=== PATIENT | female | born 1990 | race Caucasian/White ===

== ENCOUNTER → 2020-11-06 | Outpatient (CLI) | payer SELFPAY ==
[~2020-11-06] MED LIST: FERR-36 PO; HYDR-2759 PO
== END ==
LOC: LAB 13:58
PROVIDERS: ATTEND Obstetrics & Gynecology
DX: Z01.812 Encounter for preprocedural laboratory examination (principal); Z20.822 Contact with and (suspected) exposure to COVID-19
CPT/HCPCS: U0003; U0005

== ENCOUNTER 2020-11-08 11:22 | Day surgery (SDC) | payer BC ==
[~2020-11-08] VITALS: Ht 160 cm; Wt 74.0 kg
[~2020-11-08 11:22] MED LIST changes: -HYDR-2759 PO; +HYDROmorphone 2 MG/ML VIAL IVP PRN; +IV RINGERS,LACTATED 1000ML 1,000 ML IV SCH; +MORPHINE SULFATE 2 MG/ML INJ. IVP PRN; +PROCHLORPERAZINE 10 MG/2 ML VIAL. IVP PRN; +ceFAZolin SODIUM IV Push 1 GM VIAL. IVP PRN; +fentaNYL PF VIAL 100 MCG/2 ML VIAL IVP PRN
[2020-11-08] MEDS ORDERED: MIDAZOLAM HCL/PF 2 MG/2 ML VIAL. ONE (11:53)
[2020-11-08] MEDS ORDERED: fentaNYL PF VIAL 100 MCG/2 ML VIAL ONE (11:53)
[2020-11-08] MEDS ORDERED: ONDANSETRON PF 4 MG/2 ML VIAL. ONE (11:55)
[2020-11-08] MEDS ORDERED: DEXAMETHASONE SOD PHOS 4 MG/ML VIAL ONE (11:55)
[2020-11-08] MEDS ORDERED: PROPOFOL 10 MG/ML (20ML) VIAL. IV ONE (11:55)
[2020-11-08] MEDS ORDERED: LIDOCAINE 2% PF 5 ML VIAL. ONE (11:55)
[2020-11-08] MEDS ORDERED: SEVOFLURANE 61 TO 120 MINUTES. IH ONE (11:56)
--- NOTE | 2020-11-08 13:39 | PDOC ---
BRIEF OPERATIVE NOTE Date: Nov 08, 2020 Pre-Op Diagnosis 1. Retained IUD Post-Op Diagnosis Same + endometrial polyps Procedure Performed Op [facility] [place] Surgeon Dr. Tapia Anesthesia Type: General Blood Loss 5 ml Specimens Obtained Arm of Paragarud IUD, Endometrial polyps Findings nml size uterus, arm of Paragard IUD, endometrial polyps; nml fallopian tube ostia nicole. Complications none Operative Note see dictation EMORY TAPIA Jr, MD Nov 08, 2020 13:39
[2020-11-08] MEDS ORDERED: HYDR-2759 PO (13:41)
--- NOTE | 2020-11-08 13:47 | DISCH ---
DISCHARGE INSTRUCTIONS Condition on Discharge Condition on Discharge: Stable Activity After Discharge Activity Instructions for Disc: Activity as tolerated Lifting Instructions after Dis: No heavy lifting Driving Instructions after Dis: Do not drive today Diet after Discharge Diet after Discharge: Regular Contacting the DRGhada after DC Call your doctor for: Concerns you may have Follow-Up Follow up with: Dr. Tapia in 1 wk EMORY TAPIA Jr, MD Nov 08, 2020 13:47
[2020-11-08] MEDS ORDERED: oxyCODONE/APAP 5/325 1 TAB TABLET ONE (13:55)
[2020-11-08] MEDS ORDERED: oxyCODONE/APAP 5/325 1 TAB TABLET PO ONE (14:00)
--- NOTE | 2020-11-08 14:00 | OP ---
DATE OF SURGERY: 11/08/2020 PREOPERATIVE DIAGNOSIS: Retained intrauterine device. POSTOPERATIVE DIAGNOSIS: Retained intrauterine device plus endometrial polyps. PROCEDURE: Operative hysteroscopy. SURGEON: William Tapia MD EMPLOYMENT REPRESENTATIVE: [employer]. ESTIMATED BLOOD LOSS: 5 mL COMPLICATIONS: None. FINDINGS: Normal size uterus arm of ParaGard IUD, endometrial polyps. Normal fallopian tube ostia bilaterally. COMPLICATIONS: None. SUMMARY: A 30-year-old who had presented for operative hysteroscopy due to retained ParaGard IUD removal of the ParaGard IUD in the office. One arm of the IUD was not retrieved. DESCRIPTION OF PROCEDURE: The patient was counseled on the risks, benefits, and expectation of operative hysteroscopy for IUD retrieval and voiced clear understanding to proceed. The patient was taken to surgery suite and placed in dorsal lithotomy position and was prepped with Betadine solution and draped in a sterile fashion. After adequate anesthesia, weighted speculum and curved Lisa placed vaginally. Anterior lip of the cervix grasped with single tooth tenaculum. Cervix was dilated with Hegar dilators up to size 7. The TruClear hysteroscope was placed. The intrauterine cavity was visualized and found to have multiple endometrial polyps. The IUD device was visualized and retrieved with the biopsy, cystoscopy, biopsy device. We then proceeded with the TruClear device in which we resected the multiple endometrial polyps. The endometrial cavity then appeared homogeneous. Both fallopian tube ostia appeared normal and patent. The hysteroscope was removed. Weighted speculum and single tooth tenaculum were removed. The patient tolerated the procedure well and was taken to recovery room in stable condition. Sponge and needle count correct x3. SKYE/SOSA DR: SKYE/maximilian TID: [id number]
[2020-11-08 14:05] VITALS: BP 115/62
--- NOTE | 2020-11-12 17:07 | PATHOLOGY ---
[facility] Accession Number: [id number] . 01 Material submitted: . uterus - RETAINED IUD AND POLYPS . 01 Clinical history: . RETAINED IUD OPERATIVE HYSTEROSCOPY WITH TRUCLEAR MISPLACED IUD . 02 Diagnosis: Uterine curettings: - Focally polypoid segments of secretory endometrium and endometrial polyps. - Intrauterine device (Gross only). (JPM:[facility]; 11/12/2020) [facility] 11/12/2020 1641 Local . 02 Comment: There is no atypia or evidence of malignancy. (JPM:[facility]; 11/12/2020) . 02 Electronically signed: . Epifanio Davila MD, Pathologist NPI- [id number] . 01 Gross description: . The specimen is received in formalin, labeled "Medinagil, Alexandrea and retained IUD and polyps". It consists of multiple johnson irregular soft tissue fragments measuring 4.0 x 2.0 x 2.0 cm in aggregate. Also identified within the specimen container is a copper-colored, white, firm shashi measuring 1.7 cm long by 0.2 cm in diameter. A gross photograph is taken. The soft tissue is placed in biopsy bags and entirely submitted in A1 through A4. (MR[facility]; 11/09/2020) MFE/MFE 11/09/2020 1758 Local . 02 Pathologist provided ICD-10: N84.0 . 02 CPT . 204111 Specimen Comment: A courtesy copy of this report has been sent to [phone] Specimen Comment: Report sent to Performed at: [address], [place], [place] [id number] MD Hernandez Peralta MD Phone: [phone] Performed at: 02 [facility] [address] [place], [place] [id number] MD Epifanio Davila MD Phone: [phone]
== END 2020-11-08 14:28 | disposition home or self-care (01) ==
LOC: SURG 11:22 → EDUNIT# 14:30
PROVIDERS: ATTEND Obstetrics & Gynecology
DX: N84.0 Polyp of corpus uteri (principal); E66.9 Obesity, unspecified; Z79.899 Other long term (current) drug therapy; Z98.890 Other specified postprocedural states
CPT/HCPCS: 58555; 81025; A4930; J0690; J1100; J2405; J2704; J3010; 88305; A4223; A4351; J2250